=== PATIENT | male | born 1945 | race Caucasian/White ===

== ENCOUNTER → 2018-08-17 | Outpatient (CLI) | payer MEDICARE, OTHER ==
[2018-08-17 13:53] LABS: Alanine Aminotransfer (ALT/SGP 36 U/L (12-78); Albumin/Globulin Ratio 1.2 (0.8-1.8); Alk Phos 65 U/L (50-136); Anion Gap 7 mmol/L (6-16); Aspartate Aminotrans (AST/SGOT 26 U/L (12-37); Blood Urea Nitrogen 17 mg/dL (8-24); Bun/Creatinine Ratio 22.8 (12.0-20.0); CHOL/HDL RATIO 3.4; CO2, Blood 27 mmol/L (21-32); Chloride, Blood 103 mmol/L (98-108); Cholesterol 206 mg/dL (50-200); Creatinine, Blood 0.75 mg/dL (0.60-1.20); Globulin, Blood 3.2 g/dL (2.2-4.0); Glomerular Filtration Rate >60 (60-); Glucose, Blood 100 mg/dL (70-99); HDL Cholesterol 61 mg/dL (>39); LDL/HDL RATIO 1.9; Low Density Lipoprotein Chol 115 mg/dL (0-110); Potassium, Blood 4.1 mmol/L (3.5-5.5); Sodium, Blood 137 mmol/L (136-145); Total Protein, Blood 7.2 g/dL (6.4-8.2); Triglycerides 149 mg/dL (30-160); Very Low Density Lipoprot Chol 29 mg/dL (6-32)
[2018-08-20 18:09] LABS: Prostate Specific Antigen 0.595 ng/mL (0.000-4.000)
== END | disposition home or self-care (01) ==
LOC: LAB SHORT 09:42 → LAB 09:42
PROVIDERS: Hospitalist
DX: Z12.11 Encounter for screening for malignant neoplasm of colon (principal); Z12.5 Encounter for screening for malignant neoplasm of prostate; E78.5 Hyperlipidemia, unspecified; I10 Essential (primary) hypertension
CPT/HCPCS: 80053; 80061; G0103

== ENCOUNTER → 2019-04-15 | Outpatient (CLI) | payer MEDICARE, OTHER ==
[2019-04-15 15:33] LABS: BASOPHILS ABSOLUTE AUTO 0.05 K/mm3 (0.00-0.23); BASOPHILS PERCENT AUTO 1 % (0-2); EOSINOPHILS ABSOLUTE AUTO 0.14 K/mm3 (0.00-0.68); EOSINOPHILS PERCENT AUTO 2 % (0-6); Hematocrit 40.5 % (37.0-53.0); Hemoglobin 13.9 g/dL (13.5-17.5); IMMATURE GRAN ABSOLUTE AUTO 0.02 K/mm3 (0.00-0.10); IMMATURE GRAN PERCENT AUTO 0 % (0-1); LYMPHOCYTES ABSOLUTE AUTO 0.96 K/mm3 (0.84-5.20); LYMPHOCYTES PERCENT AUTO 14 % (21-46); MONOCYTES ABSOLUTE AUTO 0.44 K/mm3 (0.16-1.47); MONOCYTES PERCENT AUTO 6 % (4-13); Mean Corpuscular HGB 31.4 pg (26.0-34.0); Mean Corpuscular HGB Conc 34.3 g/dL (31.5-36.5); Mean Corpuscular Volume 91 fL (80-100); Mean Platelet Volume 8.9 fL (9.1-12.4); NEUTROPHILS ABSOLUTE AUTO 5.23 K/mm3 (1.96-9.15); NEUTROPHILS PERCENT AUTO 77 % (41-73); Platelet Count 342 K/mm3 (150-400); RDW Coefficient Variation 11.8 % (11.7-14.2); RDW Standard Deviation 39.4 fL (35.1-46.3); Red Blood Cell Count 4.43 M/mm3 (4.30-5.90); White Blood Cell Count 6.84 K/mm3 (4.00-11.30)
[2019-04-15 15:42] LABS: Alanine Aminotransfer (ALT/SGP 30 U/L (12-78); Albumin, Blood 3.4 g/dL (3.4-5.0); Alk Phos 77 U/L (40-126); Anion Gap 7 mmol/L (6-16); Aspartate Aminotrans (AST/SGOT 22 U/L (12-37); Bilirubin, Total 0.5 mg/dL (0.1-1.0); Blood Urea Nitrogen 14 mg/dL (8-24); Bun/Creatinine Ratio 17.7 (12.0-20.0); CO2, Blood 31 mmol/L (21-32); Calcium, Blood 9.2 mg/dL (8.5-10.1); Chloride, Blood 100 mmol/L (98-108); Creatinine, Blood 0.79 mg/dL (0.60-1.20); Globulin, Blood 3.5 g/dL (2.2-4.0); Glomerular Filtration Rate >60 (60-); Glucose, Blood 121 mg/dL (70-99); Potassium, Blood 3.6 mmol/L (3.5-5.5); Sodium, Blood 138 mmol/L (136-145); Total Protein, Blood 6.9 g/dL (6.4-8.2)
== END | disposition home or self-care (01) ==
LOC: LAB EV 15:28 → LAB SHORT 15:28
PROVIDERS: Physician Assistant
DX: R53.83 Other fatigue (principal)
CPT/HCPCS: 80053; 85025

== ENCOUNTER → 2019-10-22 | Outpatient (CLI) | payer MEDICARE, OTHER | END | disposition home or self-care (01) | LOC: PLD 11:01 → LAB SHORT 11:01 | DX: D48.5 Neoplasm of uncertain behavior of skin (principal) | CPT/HCPCS: 88305 ==

== ENCOUNTER 2020-10-29 11:15 | Day surgery (SDC) | payer MEDICARE, OTHER ==
[~2020-10-29] VITALS: Ht 167.6 cm; Wt 86.4 kg
[~2020-10-29 11:15] MED LIST: AMLO5 PO; ASPI81CH PO; ERGO400 PO; FISH OIL 1,2001 EAC7 PO; HYDCHL25 PO; LOSA50 PO; VITAMIN B125000 MC1 PO
--- NOTE | 2020-10-29 18:16 | NUR ---
SHIFT SUMMARY PATIENT HAS BEEN AWAKE SINCE ARRIVING FROM PACU. STATES PAIN 01/06, IMPROVED AFTER REPOSITIONING R LEG. SURGICAL DRESSING D&I. MOVES FEET. CIRC CHECKS WNL. VSS. BIPAP SET UP BY RT, CONT BIOX IN PLACE. PATIENT USING IS WHEN ON O2 PER NC. VOIDING TO URINAL. TOLERATING PO WELL. IN TO SEE, WILL RETURN IN AM FOR PT SESSION. NO ACUTE CHANGES OR C/O AT THIS TIME.
[2020-10-30 05:31] LABS: BASOPHILS ABSOLUTE AUTO 0.02 K/mm3 (0.00-0.23); BASOPHILS PERCENT AUTO 0 % (0-2); EOSINOPHILS PERCENT AUTO 0 % (0-6); Hematocrit 40.9 % (37.0-53.0); Hemoglobin 13.8 g/dL (13.5-17.5); IMMATURE GRAN ABSOLUTE AUTO 0.03 K/mm3 (0.00-0.10); IMMATURE GRAN PERCENT AUTO 0 % (0-1); LYMPHOCYTES ABSOLUTE AUTO 0.54 K/mm3 (0.84-5.20); LYMPHOCYTES PERCENT AUTO 4 % (21-46); MONOCYTES ABSOLUTE AUTO 0.58 K/mm3 (0.16-1.47); MONOCYTES PERCENT AUTO 5 % (4-13); Mean Corpuscular HGB 31.4 pg (26.0-34.0); Mean Corpuscular HGB Conc 33.7 g/dL (31.5-36.5); Mean Corpuscular Volume 93 fL (80-100); Mean Platelet Volume 9.2 fL (9.1-12.4); NEUTROPHILS ABSOLUTE AUTO 11.56 K/mm3 (1.96-9.15); NEUTROPHILS PERCENT AUTO 91 % (41-73); Platelet Count 246 K/mm3 (150-400); RDW Coefficient Variation 12.5 % (11.7-14.2); RDW Standard Deviation 43.3 fL (35.1-46.3); Red Blood Cell Count 4.39 M/mm3 (4.30-5.90); White Blood Cell Count 12.73 K/mm3 (4.00-11.30)
--- NOTE | 2020-10-30 05:31 | NUR ---
SHIFT SUMMARY POD 1 R TKA [id number], PT HR DROPS TO 47-50 WHILE AT REST OCCASIONALLY. PT REMAINS ASMYPTOMATIC DURING THESE EPISODES. REMAINED ON 1L O2 DURING NIGHT SOME DROPS WHILE SLEEPING W/O THE OXYGEN. PT UP AND AMBULATED IN HALLWAYS TOLERATED WELL. MEDICATED FOR PAIN PER EMAR. VOIDING AND TOLERATING PO. PLAN IS TO WORK WITH PT TODAY. PT DECLINED USING CPAP DURING SHIFT.
[2020-10-30 05:46] LABS: Anion Gap 5 mmol/L (6-16); Blood Urea Nitrogen 22 mg/dL (8-24); Bun/Creatinine Ratio 27.6 (12.0-20.0); CO2, Blood 26 mmol/L (21-32); Calcium, Blood 8.6 mg/dL (8.5-10.1); Chloride, Blood 106 mmol/L (98-108); Glomerular Filtration Rate >60 (60-); Glucose, Blood 132 mg/dL (70-99); Potassium, Blood 4.2 mmol/L (3.5-5.5); Sodium, Blood 137 mmol/L (136-145)
[2020-10-30] MEDS ORDERED: ENOX40I SC (11:08)
[2020-10-30] MEDS ORDERED: PROM25 PO (11:09)
[2020-10-30] MEDS ORDERED: OXYC5 PO (11:09)
[2020-10-30] MEDS ORDERED: Aspir 8181 MG PO (11:12)
--- NOTE | 2020-10-30 11:38 | NUR ---
PATIENT D/C'D HOME WITH SPOUSE AT THIS TIME; BOTH STATE UNDERSTANDING OF MEDS, LOVENOX ADMINISTRATION, ASA, WOUND CARE, ACTIVITY, OP PT, F/U APPT, ETC. PATIENT STATES PAIN 2/10, PO PAIN MED AFFECTIVE. TOLERATING PO. VOIDING. R KNEE DRESSING D&I, CIRC CHECKS WNL. NO ACITE CHANGES OR C/O.
== END 2020-10-30 11:38 | disposition home or self-care (01) ==
LOC: ORSCMMR 11:15 → ORD 12:30 → SURS 16:15 → ORSCMMR 10-30 11:38
PROVIDERS: Orthopaedic Surgery
DX: M17.11 Unilateral primary osteoarthritis, right knee (principal); I10 Essential (primary) hypertension; E78.5 Hyperlipidemia, unspecified; G47.33 Obstructive sleep apnea (adult) (pediatric); Z87.891 Personal history of nicotine dependence; Z79.899 Other long term (current) drug therapy; Z79.82 Long term (current) use of aspirin
CPT/HCPCS: 36415; 73560-RT; 80048; 83735; 85025; 88300; 94660; 94762; 97110; 97116; 97161; A9270; A9270-GY; C1713; C1776; J0171; J0690; J0735; J1100; J1650; J1885; J2250; J2370; J2405; J2704; J2795; J3010; J3370; J7120

== ENCOUNTER 2020-12-27 14:58 | Emergency (ER) | payer MEDICARE, OTHER ==
[~2020-12-27] VITALS: Ht 167.6 cm; Wt 83.9 kg
[~2020-12-27 14:58] MED LIST changes: +Aspir 8181 MG PO; +ENOX40I SC; +OXYC5 PO; +PROM25 PO
[2020-12-27 15:39] LABS: BASOPHILS ABSOLUTE AUTO 0.05 K/mm3 (0.00-0.23); BASOPHILS PERCENT AUTO 1 % (0-2); EOSINOPHILS ABSOLUTE AUTO 0.06 K/mm3 (0.00-0.68); EOSINOPHILS PERCENT AUTO 1 % (0-6); Hematocrit 47.4 % (37.0-53.0); Hemoglobin 15.9 g/dL (13.5-17.5); IMMATURE GRAN ABSOLUTE AUTO 0.02 K/mm3 (0.00-0.10); IMMATURE GRAN PERCENT AUTO 0 % (0-1); LYMPHOCYTES ABSOLUTE AUTO 1.35 K/mm3 (0.84-5.20); LYMPHOCYTES PERCENT AUTO 17 % (21-46); MONOCYTES ABSOLUTE AUTO 0.58 K/mm3 (0.16-1.47); MONOCYTES PERCENT AUTO 7 % (4-13); Mean Corpuscular HGB 30.7 pg (26.0-34.0); Mean Corpuscular HGB Conc 33.5 g/dL (31.5-36.5); Mean Corpuscular Volume 92 fL (80-100); Mean Platelet Volume 9.1 fL (9.1-12.4); NEUTROPHILS ABSOLUTE AUTO 6.04 K/mm3 (1.96-9.15); NEUTROPHILS PERCENT AUTO 75 % (41-73); Platelet Count 286 K/mm3 (150-400); RDW Coefficient Variation 12.7 % (11.7-14.2); RDW Standard Deviation 42.8 fL (35.1-46.3); Red Blood Cell Count 5.18 M/mm3 (4.30-5.90)
[2020-12-27 15:58] LABS: Alanine Aminotransfer (ALT/SGP 44 U/L (12-78); Albumin, Blood 3.7 g/dL (3.4-5.0); Albumin/Globulin Ratio 1.1 (0.8-1.8); Alk Phos 73 U/L (50-136); Anion Gap 8 mmol/L (6-16); Aspartate Aminotrans (AST/SGOT 23 U/L (12-37); Bilirubin, Total 0.5 mg/dL (0.1-1.0); Blood Urea Nitrogen 17 mg/dL (8-24); CO2, Blood 26 mmol/L (21-32); Chloride, Blood 104 mmol/L (98-108); Creatinine, Blood 0.77 mg/dL (0.60-1.20); Globulin, Blood 3.4 g/dL (2.2-4.0); Glomerular Filtration Rate >60 (60-); Glucose, Blood 91 mg/dL (70-99); Potassium, Blood 3.6 mmol/L (3.5-5.5); Sodium, Blood 138 mmol/L (136-145); Total Protein, Blood 7.1 g/dL (6.4-8.2); Troponin I <0.015 ng/mL (0.000-0.040)
== END 2020-12-27 18:38 | disposition home or self-care (01) ==
LOC: ER 14:58
PROVIDERS: Emergency Medicine
DX: R07.9 Chest pain, unspecified (principal); R91.8 Other nonspecific abnormal finding of lung field; I10 Essential (primary) hypertension; Z87.891 Personal history of nicotine dependence; Z96.651 Presence of right artificial knee joint; Z79.899 Other long term (current) drug therapy; Z79.82 Long term (current) use of aspirin
CPT/HCPCS: 36415; 71045; 71260; 80053; 84484; 85025; 85379; 93005; 93010; 99285-25; Q9967

== ENCOUNTER → 2021-11-02 | Outpatient (CLI) | payer MEDICARE, OTHER | END | disposition home or self-care (01) | LOC: LAB 11:29 → LAB SHORT 11:29 | DX: C44.329 Squamous cell carcinoma of skin of other parts of face (principal) | CPT/HCPCS: 88305 ==

== ENCOUNTER 2023-06-06 08:27 | Day surgery (SDC) | payer MEDICARE, OTHER ==
[~2023-06-06] VITALS: Ht 167.6 cm; Wt 82.9 kg
[2023-06-06] MEDS ORDERED: DONE5 (08:49)
[2023-06-06 11:04] VITALS: BP 120/87
--- NOTE | 2023-06-06 11:05 | NUR ---
[facility]06/[address] [facility]
== END 2023-06-06 10:58 | disposition home or self-care (01) ==
LOC: ORSCSDS 08:27
PROVIDERS: Internal Medicine Gastroenterology
PROC: 0DBK8ZX Excision of Ascending Colon, Via Natural or Artificial Opening Endoscopic, Diagnostic (ICD-10-PCS; principal; 2023-06-06 09:45)
PROC: 0DBL8ZX Excision of Transverse Colon, Via Natural or Artificial Opening Endoscopic, Diagnostic (ICD-10-PCS; principal; 2023-06-06 09:45)
PROC: 0DBH8ZX Excision of Cecum, Via Natural or Artificial Opening Endoscopic, Diagnostic (ICD-10-PCS; principal; 2023-06-06 09:45)
DX: Z12.11 Encounter for screening for malignant neoplasm of colon (principal); D12.0 Benign neoplasm of cecum; D12.2 Benign neoplasm of ascending colon; D12.3 Benign neoplasm of transverse colon; G47.33 Obstructive sleep apnea (adult) (pediatric); Z85.828 Personal history of other malignant neoplasm of skin; I10 Essential (primary) hypertension; Z79.899 Other long term (current) drug therapy
CPT/HCPCS: 88305; J2405; J2704; J7120

== ENCOUNTER 2023-09-26 18:35 | Emergency (ER) | payer MEDICARE, OTHER ==
[~2023-09-26] VITALS: Ht 167.6 cm; Wt 81.7 kg
[~2023-09-26 18:35] MED LIST changes: +DONE5
[2023-09-26] MEDS ORDERED: CITALOPRAM HBR20 M9 PO (20:01)
[2023-09-26] MEDS ORDERED: BACLOFEN10 M4 PO (20:01)
[2023-09-26] MEDS ORDERED: Ondansetron Odt8 MG MM (20:01)
[2023-09-26] MEDS ORDERED: FOLI1 PO (20:01)
[2023-09-26] MEDS ORDERED: LOSA50 PO (20:02)
[2023-09-26 20:08] VITALS: BP 126/76
[2023-09-26] MEDS ORDERED: XARELTO15 M1 PO (21:03)
== END 2023-09-26 21:12 | disposition home or self-care (01) ==
LOC: ER 18:35
DX: I82.432 Acute embolism and thrombosis of left popliteal vein (principal); I82.452 Acute embolism and thrombosis of left peroneal vein; C34.90 Malignant neoplasm of unspecified part of unspecified bronchus or lung; I10 Essential (primary) hypertension; Z79.82 Long term (current) use of aspirin; Z79.899 Other long term (current) drug therapy
CPT/HCPCS: 93971; 99283-25; A9270

== ENCOUNTER 2025-09-23 13:43 | Day surgery (SDC) | payer MEDICARE, OTHER ==
[~2025-09-23] VITALS: Ht 167.6 cm; Wt 82.0 kg
[~2025-09-23 13:43] MED LIST changes: +BACLOFEN10 M4 PO; +CITALOPRAM HBR20 M9 PO; +FOLI1 PO; +Ondansetron Odt8 MG MM; +XARELTO15 M1 PO
[2025-09-23] MEDS ORDERED: FINA5 (14:07)
[2025-09-23] MEDS ORDERED: Phenylephrine HCl 100 MCG/ML-NS 10MLSYR (1MG/10ML) ONE (14:49)
[2025-09-23 16:00] VITALS: BP 99/78
== END 2025-09-23 15:50 | disposition home or self-care (01) ==
LOC: ORSCSDS 13:43
PROVIDERS: Internal Medicine Gastroenterology
PROC: 0DBN8ZX Excision of Sigmoid Colon, Via Natural or Artificial Opening Endoscopic, Diagnostic (ICD-10-PCS; principal; 2025-09-23 15:00)
DX: Z12.11 Encounter for screening for malignant neoplasm of colon (principal); K63.5 Polyp of colon; K57.30 Diverticulosis of large intestine without perforation or abscess without bleeding; Z86.0101 Personal history of adenomatous and serrated colon polyps; I10 Essential (primary) hypertension; F03.90 Unspecified dementia, unspecified severity, without behavioral disturbance, psychotic disturbance, mood disturbance, and anxiety; Z86.73 Personal history of transient ischemic attack (TIA), and cerebral infarction without residual deficits; Z86.718 Personal history of other venous thrombosis and embolism; Z79.01 Long term (current) use of anticoagulants; Z79.899 Other long term (current) drug therapy
CPT/HCPCS: 88305; J2371; J2704; J7120